=== PATIENT | female | born 1960 | race Caucasian/White ===

== ENCOUNTER 2022-12-10 13:21 | Emergency (ER) | payer MEDICAID, OTHER ==
[~2022-12-10] VITALS: Ht 157.5 cm; Wt 86.0 kg
[~2022-12-10 13:21] MED LIST: AMLO10TA80 PO; BUPR100T13 MT; CLON0.5T23 MT
[2022-12-10] MEDS ORDERED: zyrtec (13:36)
[2022-12-10] MEDS ORDERED: cymbalta (13:36)
[2022-12-10] MEDS ORDERED: lipitor (13:36)
[2022-12-10 13:37] VITALS: O2SAT 98
[2022-12-10 14:30] VITALS: TEMP 98.3
[2022-12-10] MEDS ORDERED: NITROGLYCERIN 0.4MG TABLET SL SL PRN (14:30)
[2022-12-10] MEDS ORDERED: ASPIRIN 81MG TABLET PO ONE (14:30)
[2022-12-10] MEDS ORDERED: ACETAMINOPHEN 325MG TABLET PO STA (14:30)
[2022-12-10] MEDS ORDERED: FAMOTIDINE 20MG TABLET PO SCH (14:45)
[2022-12-10] MEDS ORDERED: MAGNESIUM/ALUMINUM HYDROXIDE/SIMETHICONE 30ML UDC PO ONE (14:45)
[2022-12-10 14:58] LABS: BASOPHILS % 1.2 % (0.0-2.0); HEMATOCRIT. 35.8 % (36.0-48.0); HEMOGLOBIN. 12.3 g/dL (12.0-16.0); LYMPHOCYTES % 26.9 % (20.0-50.0); MEAN CORPUSCULAR HEMOGLOBIN 28.6 pg (28.0-32.0); MEAN CORPUSCULAR HGB CONC 34.2 g/dL (31.0-37.0); MEAN CORPUSCULAR VOLUME 83.7 fL (81.0-99.0); MEAN PLATELET VOLUME 7.5 fl (7.4-10.4); MONOCYTES % 5.6 % (2.0-8.0); NEUTROPHILS % 62.3 % (40.0-76.0); PLATELET 249 x1000/uL (130-400); RED BLOOD CELL COUNT 4.28 mill/uL (4.2-5.4); WHITE BLOOD COUNT 6.5 x1000/uL (4.5-11.0)
[2022-12-10 15:07] LABS: CHLORIDE 104 mEq/L (98-107); INDEX HEMOLYSI 1 (1-3); INDEX ICTERIC 1 (1-4); INDEX LIPEMIC 1 (1-3); POTASSIUM 3.9 mEq/L (3.5-5.1); SODIUM 141 mEq/L (136-145)
[2022-12-10 15:16] LABS: ALANINE AMINOTRANSFERASE 44 IU/L (13-61); ALBUMIN 3.5 g/dL (3.4-5.0); ASPARTATE AMINOTRANSFERASE 23 IU/L (15-37); BILIRUBIN TOTAL 0.3 mg/dL (0.1-1.0); CARBON DIOXIDE 35 mEq/L (21-32); CREATININE 0.5 mg/dL (0.6-1.3); GLUCOSE 108 mg/dL (70-105); NT PRO B-TYPE NATRIURETIC PEP 211 pg/mL (5-125); PROTEIN TOTAL 7.6 g/dL (6.0-8.3); TROPONIN I HIGH SENSITIVITY 15 ng/L (<54); UREA NITROGEN BLOOD 13 mg/dL (7-21)
[2022-12-10 17:01] LABS: TROPONIN I HIGH SENSITIVITY 15 ng/L (<54)
[2022-12-10] MEDS ORDERED: SUCR1TAB MT (20:00)
[2022-12-10] MEDS ORDERED: PROT40 MT (20:00)
[2022-12-10 20:44] VITALS: BP 167/61; PULSE 85; RESP 16
== END 2022-12-10 20:46 | disposition home or self-care (01) ==
LOC: ER 13:21
DX: K21.9 Gastro-esophageal reflux disease without esophagitis (principal); I10 Essential (primary) hypertension; Z88.5 Allergy status to narcotic agent
CPT/HCPCS: 80053; 83880; 83690; 85025; 84484; 36415; 71045; 74176; 93005; 99285; Z7610